=== PATIENT | female | born 1960 | race Caucasian/White ===

== ENCOUNTER 2022-05-16 09:32 | Observation (INO) ==
[~2022-05-16 09:32] MED LIST: Buffered Lidocaine 1% SYRIN 1 ml INTRADERM ONE; Lactated Ringers 1000 ml BAG 1,000 ML IV SCH; Naloxone 0.4 mg VIAL 0.4 mg/ml 1 ml VIAL IV PRN; Ondansetron 4 mg VIAL 2 MG/ML 2 ml VIAL IV PRN
[2022-05-16] MEDS ORDERED: ceFAZolin 2 GM PREMIX 2 GM/50 ML BAG ONE (09:57)
[2022-05-16 10:09] LABS: Hematocrit 41 % (35-47); Hemoglobin 12.9 g/dL (12.0-16.0); Mean Corpuscular HGB Conc 32 g/dL (31-36); Mean Corpuscular Hemoglobin 27 pg (27-31); Mean Corpuscular Volume 86 fL (80-97); Mean Platelet Volume 7.4 fL (7.4-10.4); Platelet Count 282 10^3/uL (150-450); Red Blood Count 4.73 10^6 /uL (3.70-4.87); Red Cell Distribution Width 15 % (10-15); White Blood Count 12.5 10^3/uL (3.5-10.8)
[2022-05-16 10:52] LABS: Calcium 9.9 mg/dL (8.6-10.3); Potassium 4.1 mmol/L (3.5-5.0); eGFR CKD-EPI 72.2 (>60)
[2022-05-16] MEDS ORDERED: Dexamethasone IV 4 MG/ML VIAL 1 ml VIAL ONE (11:32)
[2022-05-16] MEDS ORDERED: Midazolam 5 mg/5 ml VIAL 1 mg/ml 5 ml VIAL (5 mg) ONE (11:32)
[2022-05-16] MEDS ORDERED: Vancomycin 1,000 MG VIAL ONE ×2 (11:32→12:06)
[2022-05-16] MEDS ORDERED: ROPIVACAINE 5 MG/ML 30 ML BTL (0.5%) ONE (11:33)
[2022-05-16] MEDS ORDERED: ceFAZolin 1 GM in Dextrose 1 GM/50 ML BAG ONE (11:43)
[2022-05-16] MEDS ORDERED: fentaNYL 100 mcg/2 ml 50 MCG/ML VIAL ONE ×2 (12:05→16:08)
[2022-05-16] MEDS ORDERED: Phenylephrine 40 mcg/mL 10mL (400mcg) SYRINGE ONE (13:04)
[2022-05-16] MEDS ORDERED: Propofol 10 MG/ML 20 ML BTL ONE ×2 (13:59→14:43)
[2022-05-16] MEDS ORDERED: Morphine 2 MG/ML SYRINGE IV PRN (15:18)
[2022-05-16] MEDS ORDERED: Lactulose 30 ml UDC PO PRN (15:18)
[2022-05-16] MEDS ORDERED: Ondansetron ODT 4 mg TAB 4 MG TAB PO PRN (15:18)
[2022-05-16] MEDS ORDERED: Magnesium Hydroxide LIQ 30 ML UDC PO PRN (15:18)
[2022-05-16] MEDS ORDERED: Ondansetron 4 mg VIAL 2 MG/ML 2 ml VIAL IV PRN (15:18)
[2022-05-16] MEDS ORDERED: Lactated Ringers 1000 ml BAG 1,000 ML IV SCH (16:00)
[2022-05-16] MEDS: fentaNYL 100 mcg/2 ml 50 MCG/ML VIAL IV PRN ×4 (16:11→17:18)
[2022-05-16] MEDS ORDERED: Ondansetron 4 mg VIAL 2 MG/ML 2 ml VIAL ONE (17:14)
[2022-05-16] MEDS: ceFAZolin 1 GM ADVAN 1 GM in NS 0.9% 50 ML 50 ML IVPB SCH (20:57)
[2022-05-16] MEDS: Magnesium Hydroxide LIQ 30 ML UDC PO SCH (20:58)
[2022-05-16] MEDS ORDERED: CMCS: Solifenacin 5 mg TAB (NF) PO SCH (21:00)
[2022-05-17] MEDS: ceFAZolin 1 GM ADVAN 1 GM in NS 0.9% 50 ML 50 ML IVPB SCH ×2 (04:27→11:48)
[2022-05-17 05:25] LABS: Hematocrit 32 % (35-47); Hemoglobin 10.4 g/dL (12.0-16.0); Mean Platelet Volume 7.5 fL (7.4-10.4); Platelet Count 219 10^3/uL (150-450)
[2022-05-17 05:54] LABS: Calcium 8.9 mg/dL (8.6-10.3); Potassium 4.6 mmol/L (3.5-5.0); eGFR CKD-EPI 78.4 (>60)
[2022-05-17] MEDS: Magnesium Hydroxide LIQ 30 ML UDC PO SCH (08:04)
[2022-05-17] MEDS ORDERED: Vitamin THERAPEUTIC TAB PO SCH (09:00)
== END 2022-05-17 13:45 | disposition home or self-care (01) ==
LOC: OR 09:32 → SSU 09:32
PROVIDERS: ADMIT Orthopaedic Surgery; ATTEND Orthopaedic Surgery

== ENCOUNTER 2023-11-06 06:01 | Inpatient (IN) ==
[~2023-11-06 06:01] MED LIST changes: -Buffered Lidocaine 1% SYRIN 1 ml INTRADERM ONE; -Lactated Ringers 1000 ml BAG 1,000 ML IV SCH
[2023-11-06] MEDS ORDERED: ceFAZolin 2 GM in NS PREMIX 2 GM/100 ML BAG IVPB ONE (07:03)
[2023-11-06 07:15] LABS: Rapid COVID-19 Molecular Undetected (Undetected)
[2023-11-06] MEDS ORDERED: Bupivacaine 0.5% SDV PF 30ML VIAL ONE (07:15)
[2023-11-06] MEDS ORDERED: Vancomycin 1,000 MG VIAL ONE (07:16)
[2023-11-06] MEDS ORDERED: fentaNYL 100 mcg/2 ml 50 MCG/ML VIAL ONE ×3 (07:20→14:08)
[2023-11-06] MEDS ORDERED: Propofol 10 MG/ML 20 ML BTL ONE ×6 (07:20→12:48)
[2023-11-06] MEDS ORDERED: Rocuronium 50 mg VIAL 10 mg/ml 5 ml VIAL (50 mg) ONE ×2 (07:20→07:22)
[2023-11-06] MEDS ORDERED: Midazolam 2 mg/2 ml VIAL 1 mg/ml 2 ml VIAL (2 mg) ONE (07:20)
[2023-11-06] MEDS ORDERED: Ondansetron 4 mg VIAL 2 MG/ML 2 ml VIAL ONE (07:20)
[2023-11-06] MEDS ORDERED: Lidocaine 2% PF 5 ML VIAL ONE (07:20)
[2023-11-06] MEDS ORDERED: Dexamethasone IV 4 MG/ML VIAL 1 ml VIAL ONE (07:20)
[2023-11-06] MEDS ORDERED: Bupivacaine-MPF SPINAL 7.5 MG/ML - 2ML AMP ONE (08:29)
[2023-11-06] MEDS ORDERED: Phenylephrine 40 mcg/mL 10mL (400mcg) SYRINGE ONE ×2 (08:29→09:59)
[2023-11-06] MEDS ORDERED: Phenylephrine IV 10 MG/ML 1 ml VIAL ONE (09:59)
[2023-11-06] MEDS ORDERED: Propofol 1,000 MG/100 ML BTL ONE (10:57)
[2023-11-06] MEDS ORDERED: Albumin Human 5% 12.5 GM/250 ML BTL IV ONE ×2 (10:57→11:29)
[2023-11-06] MEDS ORDERED: Propofol 10 mg/ml 100 ML BTL 1,000 MG/100 ML BTL ONE (10:57)
[2023-11-06] MEDS ORDERED: Dexmedetomidine 200 mcg/2 ml 2 ml VIAL (200 mcg) ONE (11:03)
[2023-11-06] MEDS ORDERED: Magnesium Hydroxide LIQ 30 ML UDC PO PRN (13:30)
[2023-11-06] MEDS ORDERED: Lactulose 30 ml UDC PO PRN (13:30)
[2023-11-06] MEDS ORDERED: Ondansetron ODT 4 mg TAB 4 MG TAB PO PRN (13:30)
[2023-11-06] MEDS: fentaNYL 100 mcg/2 ml 50 MCG/ML VIAL IV PRN (14:11)
[2023-11-06 14:19] LABS: Hematocrit 31.7 % (35-45); Hemoglobin 10.4 g/dL (11.5-14.3)
[2023-11-06] MEDS: Ondansetron 4 mg VIAL 2 MG/ML 2 ml VIAL IV PRN (15:43)
[2023-11-06] MEDS: Lactated Ringers 1000 ml BAG 1,000 ML IV SCH ×2 (15:45→19:34)
[2023-11-06] MEDS ORDERED: Benzocaine/Menthol LOZ PO PRN (16:46)
[2023-11-06] MEDS: Morphine 2 MG/ML SYRINGE IV PRN (17:10)
[2023-11-06] MEDS: ceFAZolin 1 GM ADVAN 1 GM in NS 0.9% 50 ML 50 ML IVPB SCH (17:11)
[2023-11-06 18:58] LABS: Hematocrit 32.4 % (35-45); Hemoglobin 10.7 g/dL (11.5-14.3)
[2023-11-06] MEDS: Buffered Lidocaine 1% SYRIN 1 ml INTRADERM ONE (19:34)
[2023-11-06] MEDS: Magnesium Hydroxide LIQ 30 ML UDC PO SCH (21:46)
[2023-11-07 06:11] LABS: Hematocrit 26.3 % (35-45); Hemoglobin 8.8 g/dL (11.5-14.3); Mean Platelet Volume 7.5 fL (7.5-11.2); Platelet Count 169 10^3/uL (150-450)
[2023-11-07 06:34] LABS: Calcium 8.5 mg/dL (8.6-10.3); Creatinine, Serum 0.77 mg/dL (0.51-0.95); Potassium 4.8 mmol/L (3.5-5.0); eGFR CKD-EPI 87.7 (>60)
[2023-11-07] MEDS: Vitamin THERAPEUTIC TAB PO SCH (08:25)
[2023-11-08 05:22] LABS: Hematocrit 23.1 % (35-45); Hemoglobin 7.8 g/dL (11.5-14.3); Mean Platelet Volume 7.6 fL (7.5-11.2); Platelet Count 147 10^3/uL (150-450)
[2023-11-08 14:23] VITALS: BP 125/65
== END 2023-11-08 15:30 | disposition home or self-care (01) | DRG 301 ==
LOC: OBSVTOIN 06:01 → INTOOBSV 06:01 → AA 06:01 → SSU 13:30
PROVIDERS: ADMIT Orthopaedic Surgery; ATTEND Orthopaedic Surgery